=== PATIENT | male | born 1950 | race Hispanic/Latino ===

== ENCOUNTER 2016-04-19 16:37 | Outpatient (CLI) | payer OTHER ==
--- NOTE | 2016-04-20 10:00 | Magnetic Resonance Report ---
MRI scan of lumbar spine: History: Low back pain. Technique: Multiplanar, multisequence images were obtained without contrast injection. Findings: Conus medullaris terminates at L1 with normal signal intensity. Normal lumbar lordosis. Normal pre-and paravertebral soft tissue. Normal height and signal intensity of vertebral bodies with decrease in height and signal intensity of L3-4, L4-5 and L5-S1 disc secondary to degenerative changes. The lowest disc level is considered S1-S2. L1-L2. Normal. L2-L3. Mild bilateral neural foramina narrowing with mild central canal spinal stenosis secondary to degenerative diffuse disc bulge and degenerative facet joints and ligamenta flava hypertrophy. L3-L4. Severe bilateral neural foramina narrowing and mild central canal spinal stenosis secondary to degenerative diffuse disc bulge and degenerative facet joints with mild ligamenta flava hypertrophy. L4-L5. Severe bilateral neural foramina narrowing and severe central canal spinal stenosis secondary to degenerative diffuse disc bulge and degenerative facet joints with ligamenta flava hypertrophy. L5-S1. Severe bilateral neuroforaminal narrowing. No central canal spinal stenosis. Degenerative diffuse disc bulge and degenerative facet joints with normal ligamenta flava . Impression: Multilevel bilateral neural foraminal narrowing with central canal spinal stenosis as detailed above. No focal protrusion, extrusion or sequestration of disc.
== END 2016-04-19 16:38 | disposition home or self-care (01) ==
LOC: MRI 16:37
PROVIDERS: ATTEND Specialist
DX: M48.06 Spinal stenosis, lumbar region (principal); M40.46 Postural lordosis, lumbar region; M24.28 Disorder of ligament, vertebrae
CPT/HCPCS: 72148

== ENCOUNTER 2017-11-21 13:18 | Outpatient (CLI) | payer OTHER ==
[2017-11-21 13:48] LABS: Blood Urea Nitrogen 16 mg/dL (9-20)
--- NOTE | 2017-11-25 09:21 | Magnetic Resonance Report ---
MR scan of the cranium was performed with and without contrast. Pulse sequences included: 1. T1 weighted sagittal and axial images without contrast and T1 axial and coronal images with contrast 2. T2 weighted axial and coronal images 3. FLAIR axial images 4. Diffusion-weighted axial images 5. Apparent diffusion coefficient images Views of the posterior fossa showed a normal craniocervical junction. Cerebellar pontine angles were normal with normal seventh-eighth nerve complexes. Brainstem and cerebellum were normal. The ventricular system showed no dilatation or distortion. Images of the hemispheres showed no areas of increased or decreased signal. Sinuses showed increased signal in the right mastoid sinus consistent with sinusitis. Pituitary, flow voids in the [place], orbits, and basal ganglia were normal. There are no abnormal areas of enhancement with contrast. Impression: Abnormal MR scan of the cranium with and without contrast a. right mastoiditis
== END 2017-11-21 13:19 | disposition home or self-care (01) ==
LOC: MRI 13:18
PROVIDERS: ATTEND Specialist
DX: H70.91 Unspecified mastoiditis, right ear (principal); H83.09 Labyrinthitis, unspecified ear; Z91.048 Other nonmedicinal substance allergy status
CPT/HCPCS: 36415; 70553; 82565; 84520; A9577